=== PATIENT | female | born 1965 | race Caucasian/White ===

== ENCOUNTER 2018-04-18 14:01 | Emergency (ER) | payer MEDICAID ==
[~2018-04-18] VITALS: Ht 154.9 cm; Wt 99.8 kg
[2018-04-18 14:01] VITALS: BP_SYST 161
[2018-04-18 15:23] VITALS: BP_SYST 117
== END 2018-04-18 16:51 | disposition home or self-care (01) ==
LOC: SED 14:01
DX: S13.4XXA Sprain of ligaments of cervical spine, initial encounter (principal); S33.5XXA Sprain of ligaments of lumbar spine, initial encounter; S20.219A Contusion of unspecified front wall of thorax, initial encounter; R03.0 Elevated blood-pressure reading, without diagnosis of hypertension; Z88.5 Allergy status to narcotic agent; V89.2XXA Person injured in unspecified motor-vehicle accident, traffic, initial encounter; Y93.I9 Activity, other involving external motion; Y92.89 Other specified places as the place of occurrence of the external cause; Y99.8 Other external cause status
CPT/HCPCS: 71045; 72100-TC; 72125-TC; 99284